=== PATIENT | female | born 1995 | race Caucasian/White ===

== ENCOUNTER 2019-02-12 18:01 | Emergency (ER) | payer SELFPAY ==
[~2019-02-12] VITALS: Ht 165.1 cm; Wt 91.9 kg
[~2019-02-12 18:01] MED LIST: PREN1TAB13 PO
[2019-02-12 18:33] VITALS: BP 154/70; PULSE 88; RESP 18; Ht 165.1 cm; Wt 91.9 kg
== END 2019-02-12 23:03 | disposition left against medical advice (07) ==
LOC: FTE 18:01
DX: Z53.21 Procedure and treatment not carried out due to patient leaving prior to being seen by health care provider (principal)